=== PATIENT | male | born 2000 | race Caucasian/White ===

== ENCOUNTER 2019-11-26 15:28 | Emergency (ER) | payer OTHER ==
[~2019-11-26] VITALS: Ht 320 cm; Wt 65.8 kg
[2019-11-26] MEDS ORDERED: VISTARIL25 MG PO (16:05)
== END 2019-11-26 18:59 | disposition home or self-care (01) ==
LOC: ER 15:28
DX: K29.70 Gastritis, unspecified, without bleeding (principal)